=== PATIENT | male | born 1965 | race African-American/Black ===

== ENCOUNTER 2023-10-16 09:34 | Emergency (ER) | payer SELFPAY ==
--- NOTE | ~2023-10-16 | XR_ITS ---
EXAMINATION: XR CHEST CLINICAL INFORMATION: Chest pain COMPARISON: None available. TECHNIQUE: 2 views of the chest were obtained. FINDINGS: No significant abnormality is noted involving the heart, lungs, mediastinum, bony thorax or soft tissues. There is bony bridging throughout the thoracic spine consistent with DISH. XR/XR chest 2V IMPRESSION: No acute disease.
[2023-10-16 09:38] VITALS: BP 141/85; PULSE 67; RESP 19; TEMP 36.6; O2SAT 98; BMI 28.0
--- NOTE | 2023-10-16 09:38 | ECG_ITS ---
Test Reason : cp Blood Pressure : / mmHG Vent. Rate : 069 BPM Atrial Rate : 069 BPM P-R Int : 190 ms QRS Dur : 094 ms QT Int : 366 ms P-R-T Axes : 045 053 046 degrees QTc Int : 392 ms Normal sinus rhythm Normal ECG No previous ECGs available Referred By: Generic ED Physician Electronically Signed By:LUZ LEMOS MD
--- NOTE | 2023-10-16 09:59 | PC.NURSE ---
a&ox4. vss and up to date. nsr on the monitoring and evaluation advisor. pt presents ot the ED w/ nonradiating right sided chest pain/blurry vision/sob x 0800 this am. 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 20gIV placed in the left forearm - labs obtained/sent to lab. pt waiting for xray to be completed. no sob/wob noted. respirations even/unlabored. plan of care ongoing. family bedside for support. call rodas placed within reach.
--- NOTE | 2023-10-16 10:01 | ED.CHESTPAIN ---
HPI - Chest Pain General Chief Complaint: Chest Pain Stated Complaint: SOB Chest Pain Time Seen by Provider: 10/16/23 09:53 Source: patient and RN notes reviewed Mode of arrival: ambulatory Limitations: no limitations History of Present Illness ED Provider: Lauren Friedman PA-C HPI narrative: This is a 58-year-old male, with a history of myocardial infarction last year seen at a [facility], hypertension, and hyperlipidemia, who presents emergency department with complaints of 1 episode of chest pain which occurred at 8:00 a.m. this morning. 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 He endorse that he had slight shortness of breath and bilateral blurred vision at that time as well. All these symptoms have since resolved. He currently is asymptomatic. He denies taking any medications or aspirin prior to his arrival. He denies any alcohol use. He denies cocaine use. Family member reports that 2 nights ago he had similar symptoms, was not seen medically afterwards. No other complaints or concerns at this time. MD complaint: chest pain Pertinent past history: coronary artery disease and prior HI Onset (ago): hour(s) Timing of current episode: episodic Prior episodes: Yes Pain location: right chest Pain radiation: none Severity: moderate Quality: aching and heaviness Relieving factors: nothing Exacerbating factors: nothing Treatment prior to arrival: none Risk Factors Coronary artery disease risk factors: hyperlipidemia and hypertension Related Data Allergies Allergy/AdvReac Type Severity Reaction Status Date / Time No Known Allergies Allergy Verified 10/16/23 09:39 [facility] Social History Social History Smoked in Last 30 Days: No Use of substances other than those prescribed or required for medical reasons: No Advance Directives: No Advance Directives Information Provided: Yes Do you have a plan to hurt others: No Plan Physical Exam Vital Signs: Vital Signs: Last Vital Signs Temp 98.0 F 10/16/23 14:49 Pulse 66 10/16/23 14:49 Resp 16 10/16/23 14:49 BP 144/77 H 10/16/23 14:49 Pulse Ox 100 10/16/23 14:49 O2 Del Method Room Air 10/16/23 14:49 BMI result Body Mass Index 28.0 Course Reevaluation(s) Reevaluation #1: Labs returned, no leukocytosis, stable H&H, 1st troponin less than 2.7, will repeat in 3 hours. Patient remains to be asymptomatic. Chest x-ray negative. Time: 11:52 Reevaluation #2: Second troponin negative. He has not had any return of his symptoms. At this time patient can be discharged safely, given return precautions as well as advised to follow-up with his director workforce management who is out in the [facility]. He understands and agrees with plan. It is unclear what caused him to have the symptoms however workup today is reassuring. Patient stable for discharge. Time: 14:23 Medical Decision Making Medical Decision Making [facility] Narrative: This is a 58-year-old malewho presents emergency department with complaints of chest pain. On arrival, vital signs within normal limits. Patient had an episode of chest pain which occurred at 8:00 a.m. this morning, describing this as right-sided, did not radiate. This resolved on its own. 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 He endorsed some shortness for breath and blurred vision however after 30 minutes, this resolved. On arrival, patient is speaking in full sentences, under no acute distress. Plan: Labs, EKG, CXR Differential Diagnosis Differential Diagnoses: The differential diagnosis associated with the presentation includes ACS, PNX, electrolyte derangement, anxiety, costochondritis Lab Data [facility] Lab Attestation statement: I reviewed the patient's lab results. No leukocytosis, stable H&H, CHEM WNL, trop x 2 neg 10/16/23 09:54 10/16/23 09:54 Labs: Lab Results 10/16/23 10/16/23 10/16/23 Range/Units 09:54 10:42 13:10 WBC 5.6 (4.8-10.8) X10*3/uL RBC 5.09 (4.60-5.80) X10*6/uL Hgb 14.9 (14.0-18.0) g/dl Hct 43.0 (42.0-52.0) % MCV 84.5 (80.0-98.0) fL MCH 29.3 (27.0-33.0) pg MCHC 34.7 (31.0-36.0) g/dl RDW 12.9 (11.0-16.0) % Plt Count 162 (160-400) X10*3/uL MPV 10.2 (9.4-12.4) fL Immature Gran % (Auto) 0.2 (0.0-0.4) % Neut % (Auto) 48.2 (45-73) % Lymph % (Auto) 40.5 H (20-40) % [place] % (Auto) 10.2 (2-11) % Eos % (Auto) 0.5 (0-4) % Baso % (Auto) 0.4 (0-2) % Lymph # (Auto) 2.3 (1.2-4.9) X10*3/uL [place] # (Auto) 0.6 (0.1-1.2) X10*3/uL Eos # (Auto) 0.0 (0.0-0.4) X10*3/uL Baso # (Auto) 0.0 (0.0-0.2) X10*3/uL Abs Immat Gran (auto) 0.01 (0.00-0.03) X10*3/uL Absolute Neuts (auto) 2.7 (2.0-8.3) x10*3/uL Absolute Nucleated RBC 0.000 (0.0-0.012) X10*3/uL Nucleated RBC % (auto) 0.0 (0.0-0.2) /100WBC PT 12.5 (11.1-13.3) SEC INR 1.0 (0.9-1.1) APTT 41.6 H (26.0-36.8) SEC Sodium 138 (135-145) mmol/L Potassium 4.1 (3.3-5.1) mmol/L Chloride 106 (96-108) mmol/L Carbon Dioxide 25 (22-29) mmol/L Anion Gap 11 L (12-20) BUN 12 (9-16) mg/dL Creatinine 0.92 (0.5-1.4) mg/dL Estim Creat Clear Calc 96.8 Estimated GFR > 60 Random Glucose 93 (60-115) mg/dL Calcium 9.1 (8.4-10.2) mg/dL Magnesium 2.1 (1.6-2.6) mg/dL Total Bilirubin 0.7 (0.0-1.0) mg/dL Direct Bilirubin 0.2 (0.0-0.5) mg/dL AST 19 (5-37) U/L ALT 21 (0-40) U/L Alkaline Phosphatase 60 (39-117) U/L Troponin I High Sens < 2.7 < 2.7 (<3.5-35.0) ng/L Total Protein 7.3 (6.5-8.0) g/dL Albumin 4.4 (3.5-5.0) g/dL Lipase 32 (8-78) U/L Urine Color Yellow Urine Appearance Clear Urine pH 6.5 (5.0-9.0) Ur Specific [place] <= 1.005 (1.005-1.025) Urine Protein Negative (Neg-Trace) mg/dL Urine Glucose (UA) Negative (Negative) mg/dL Urine Ketones Negative (Negative) mg/dL Urine Blood Negative (Negative) Urine Nitrite Negative (Negative) Ur Leukocyte Esterase Negative (Negative) Urine RBC 0-2 (0-2) /HPF Urine WBC 0-5 (0-5) /HPF Ur Squamous Epith Cells 0-2 (0-2) /HPF Urine Bacteria None Seen (None Seen) Hyaline Casts 0-2 (0-2) /LPF Influenza Type A (PCR) NEGATIVE (Negative) Influenza Type B (PCR) NEGATIVE (Negative) RSV RNA Qual (PCR) NEGATIVE (Negative) SARS-CoV-2 RNA (RT-PCR) NEGATIVE (Negative) Independent Interpretation I performed an independent interpretation of an: EKG Interpretation: ekg NSR at 69 bpm, no st elevation or depression, QT/QTC 366/392. Radiology Impression Discussion of test interpretation with radiology: I have reviewed the radiologist's reading. Radiologist Impression: XR/XR chest 2V IMPRESSION: No acute disease. Dictated By: Corky Krueger MD Scores Heart Score History: -0- slightly suspicious ECG: -0- normal Age: -1- >45 - <65 Risk factory: -1- 1 or 2 risk factors Troponin: -0- < or = normal limit Score: 2 Risk: 1.7% Discharge Plan Discharge Clinical Impression: Chest pain Patient Disposition: Home, Self-Care Instructions: Chest Pain (ED) Additional Instructions: You were seen in the emergency department due to chest pain. Your workup today was reassuring. Please drink plenty of fluids get plenty of rest. It is unclear what caused you to have the symptoms however today's workup was normal. If any new or worsening symptoms occur including but not limited to chest pain, shortness of breath, please seek emergent care. Please follow-up with your director workforce management regarding this visit. Interventions: ED Discharge Assessment Last Done: 10/16/23 14:49 Discharge Date/Time: 10/16/23 14:53 Print Language: Polish
[2023-10-16 10:04] LABS: MANUAL DIFF FLAG NO
[2023-10-16 10:05] LABS: Basophils Percent Auto 0.4 % (0-2); Eosinophils Percent Auto 0.5 % (0-4); Hemoglobin 14.9 g/dl (14.0-18.0); Imm Gran Abs Auto 0.01 X10*3/uL (0.00-0.03); Imm Gran Pct Auto 0.2 % (0.0-0.4); Lymphocytes Absolute Auto 2.3 X10*3/uL (1.2-4.9); Lymphocytes Percent Auto 40.5 % (20-40); Mean Corpuscular HGB Conc 34.7 g/dl (31.0-36.0); Mean Corpuscular Hemoglobin 29.3 pg (27.0-33.0); Mean Corpuscular Volume 84.5 fL (80.0-98.0); Mean Platelet Volume 10.2 fL (9.4-12.4); Monocytes Absolute Auto 0.6 X10*3/uL (0.1-1.2); Monocytes Percent Auto 10.2 % (2-11); Neutrophils Absolute Auto 2.7 x10*3/uL (2.0-8.3); Neutrophils Percent Auto 48.2 % (45-73); Platelet Count 162 X10*3/uL (160-400); Red Blood Count 5.09 X10*6/uL (4.60-5.80); Red Cell Distribution Width 12.9 % (11.0-16.0); White Blood Count 5.6 X10*3/uL (4.8-10.8)
[2023-10-16 10:11] LABS: Prothrombin Time 12.5 SEC (11.1-13.3)
[2023-10-16 10:13] LABS: Partial Thromboplastin Time 41.6 SEC (26.0-36.8)
[2023-10-16 10:27] VITALS: BP 144/77; PULSE 66; RESP 16; TEMP 36.7; O2SAT 100
[2023-10-16 10:31] LABS: Carbon Dioxide 25 mmol/L (22-29); Chloride 106 mmol/L (96-108); Potassium 4.1 mmol/L (3.3-5.1); Sodium 138 mmol/L (135-145); Troponin-I High Sensitivity < 2.7 ng/L (<3.5-35.0)
[2023-10-16 10:32] LABS: Alanine Aminotransferase 21 U/L (0-40); Anion Gap 11 (12-20); Aspartate Amino Transferase 19 U/L (5-37); Bilirubin Direct 0.2 mg/dL (0.0-0.5); Bilirubin Total 0.7 mg/dL (0.0-1.0); Blood Urea Nitrogen 12 mg/dL (9-16); Calcium 9.1 mg/dL (8.4-10.2); Creatinine Clr Calc Pharmacy 96.8; Estimated Glomerular Filt Rate > 60; Glucose Random 93 mg/dL (60-115); Magnesium 2.1 mg/dL (1.6-2.6)
[2023-10-16 10:33] LABS: Albumin Level 4.4 g/dL (3.5-5.0); Alkaline Phosphatase 60 U/L (39-117); Lipase 32 U/L (8-78); Total Protein 7.3 g/dL (6.5-8.0)
--- NOTE | 2023-10-16 10:35 | PC.NURSE ---
chest xray completed at this time.
[2023-10-16 10:42] LABS: Influenza A PCR NEGATIVE (Negative); Influenza B PCR NEGATIVE (Negative); Resp Syncy Virus RNA Qual PCR NEGATIVE (Negative); SARS COV2 PCR INHOUSE NEGATIVE (Negative)
[2023-10-16 10:54] LABS: Appearance Urine Clear; Color Urine Yellow; Glucose Urine UA Negative (Negative); Leukocyte Esterase Urine Negative (Negative); Nitrite Urine Negative (Negative); PH 6.5 (5.0-9.0); Specific Gravity - Urine <= 1.005 (1.005-1.025); Urine Blood Negative (Negative); Urine Ketones Negative (Negative); Urine Protein Negative (Neg-Trace)
[2023-10-16 10:57] LABS: Bacteria Urine None Seen (None Seen); Hyaline Casts Urine 0-2 /LPF (0-2); RBC Urine 0-2 /HPF (0-2); Squamous Epithelial Cell Urine 0-2 /HPF (0-2); WBC Urine 0-5 /HPF (0-5)
--- NOTE | 2023-10-16 13:10 | PC.NURSE ---
repeat troponin obtained/sent to lab.
[2023-10-16 13:45] LABS: Troponin-I High Sensitivity < 2.7 ng/L (<3.5-35.0)
[2023-10-16 14:49] VITALS: BP 144/77; PULSE 66; RESP 16; TEMP 36.7; O2SAT 100
== END 2023-10-16 14:53 | disposition home or self-care (01) ==
PROVIDERS: Physician Assistant Medical; Emergency Provider Student in an Organized Health Care Education/Training Program
DX: R07.9 Chest pain, unspecified (principal); R06.02 Shortness of breath; Z03.818 Encounter for observation for suspected exposure to other biological agents ruled out
CPT/HCPCS: 0241U; 36415; 71046; 80048; 80076; 81001; 83690; 83735; 84484; 85025; 85610; 85730; 93005; 99283; 99285

== ENCOUNTER → 2023-10-16 09:38 | Outpatient (BNV) | payer SELFPAY | PROVIDERS: Emergency Provider Student in an Organized Health Care Education/Training Program; Visit Provider Internal Medicine Cardiovascular Disease | DX: R07.9 Chest pain, unspecified (principal) | CPT/HCPCS: 93010 ==